=== PATIENT | female | born 2000 | race Caucasian/White ===

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

== ENCOUNTER 2022-12-18 13:14 | Emergency (ER) | payer BC, SELFPAY ==
--- NOTE | 2022-12-18 13:18 | ED.URI ---
HPI - URI/Sore Throat General Chief Complaint: Upper Respiratory Infection Stated Complaint: Sore Throat Time Seen by Provider: 12/18/22 13:17 Source: patient Mode of arrival: ambulatory Limitations: no limitations History of Present Illness HPI Narrative: Padmini is a 22-year-old female patient presenting to the clinic today with complaints sore throat since last night. She reports no known exposure to anyone with COVID, flu, or strep. Denies any fever, chills, body aches, runny nose, cough, headache, nausea, or vomiting Related Data Home Medications Medication Instructions Recorded Confirmed norelgestromin 150 mcg-e.estradiol 1 patch transdermal WEEKLY 09/28/20 01/07/21 35 mcg/24 hr weekly transderm patch (Xulane) Allergies Allergy/AdvReac Type Severity Reaction Status Date / Time No Known Allergies Allergy Verified 12/18/22 13:26 Review of Systems Review of Systems: Pertinent positives per HPI. Patient denies any fever, chills, rash, headache, visual changes, dizziness, cough, runny nose, shortness of breath, chest pain, palpitations, nausea, vomiting, diarrhea, constipation, abdominal pain, or any urinary issues. [facility] Past Medical History Medical History BMI 26.0-26.9,adult BMI 27.0-27.9,adult Family History Family History Father No problems noted. Mother Diabetes mellitus Thyroid activity decreased Hyperlipidemia Hypertension Sibling No problems noted. 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 There is no relevant family history pertinent to the patient complaint. Exam Narrative: General: Well-developed, well nourished, in no apparent distress Head: Normocephalic, atraumatic Eyes: Pupils equally round and reactive to light bilaterally, EOM intact, sclera and conjunctive clear, no discharge, lids normal Ears: TMs intact and clear, ear canals clear, no drainage, grossly hearing normal. Nose: Nares patent, no discharge, no inflammation, no sinus tenderness. Mouth: Oropharynx red without lesions or masses, good dentition, MMM. Neck: Supple, trachea midline, no enlargement of anterior or posterior cervical nodes, no thyroid masses or goiter palpable. Cardio: Regular rate and rhythm, s1 and s2 normal, no murmur appreciated. Resp: Clear to auscultation bilaterally anteriorly and posteriorly, no rhonchi, rales, wheezing or rubs Course Course Emergency Course: Portions of this record may have been created with voice recognition software. Level of Care: Express Care Visit Vital Signs Vital signs: Vital signs reviewed MDM - URI/Sore Throat MDM Narrative Medical decision making narrative: At the time of visit patient is resting comfortably on the exam table. Strep screen was obtained and was negative in the clinic today. We will send strep for culture. I suspect patient has pharyngitis. Supportive measures were discussed with the patient she voiced understanding discharge instructions and agrees to treatment plan. Return precautions were reviewed Differential Diagnosis Differential diagnosis: Likely upper respiratory infection, otitis media, sinusitis, viral infection, bronchitis, influenza
[2022-12-18 13:27] VITALS: BP 139/93; PULSE 93; RESP 16; TEMP 36.6; O2SAT 100
== END 2022-12-18 13:40 | disposition home or self-care (01) ==
PROVIDERS: Emergency Provider Nurse Practitioner Family; PCP Family Medicine
DX: J02.0 Streptococcal pharyngitis (principal)
CPT/HCPCS: 87880; 99213; G0463

== ENCOUNTER 2023-01-26 17:44 | Emergency (ER) | payer BC, SELFPAY ==
[2023-01-26 17:56] VITALS: BP 138/82; PULSE 128; RESP 16; TEMP 37.5; O2SAT 97
--- NOTE | 2023-01-26 17:58 | ED.URI ---
HPI - URI/Sore Throat General Chief Complaint: Upper Respiratory Infection Stated Complaint: Cough, Drainage Source: patient Mode of arrival: ambulatory Limitations: no limitations History of Present Illness HPI Narrative: 22-year-old female presented for complaint cough and chest congestion for about 4 days. Cough is productive of yellow mucous. Endorses chest hurts from coughing so much. She took a negative COVID test at home today. She denies shortness of breath, wheezing nausea, vomiting, fevers or chills. taking multiple whjg-cir-[id number] medicines for symptoms. Related Data Home Medications Medication Instructions Recorded Confirmed norgestimate-ethinyl estradiol 1 tablet PO DAILY 01/26/23 01/26/23 0.18 mg/0.215mg/0.25mg-35 mcg(28)tablet (Tri-Sprintec (28)) Allergies Allergy/AdvReac Type Severity Reaction Status Date / Time No Known Allergies Allergy Verified 01/26/23 17:53 Review of Systems Review of Systems: CONSTITUTIONAL: Denies body aches, fever, chills, or sweats. EYES: Denies visual changes, redness, or discharge. ENT: rhinorrhea, Denies sore throat or otalgia. CARDIOVASCULAR: Denies chest pain, palpitations, or edema. RESPIRATORY: Reports cough, denies sob, wheezing. GASTROINTESTINAL: Denies abdominal pain, nausea, vomiting, or diarrhea. SKIN: Denies rash, itching, or wounds. MUSCULOSKELETAL: Denies back pain, joint pain, or myalgia. NEUROLOGIC: Denies headache, numbness, tingling, or weakness. All systems reviewed & are unremarkable except as noted in HPI and below PMFSH Past Medical History Medical History BMI 26.0-26.9,adult BMI 27.0-27.9,adult BMI 33.0-33.9,adult Family History Family History Father No problems noted. Mother Diabetes mellitus Thyroid activity decreased Hyperlipidemia Hypertension Sibling No problems noted. 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 Please see nursing chart for further information. There is no relevant family history pertinent to the presenting complaint Exam Narrative: GENERAL: Well-appearing EYES: EOMI. No redness or drainage. Conjunctivae normal. ENT: Mucous membranes pink and moist. No rhinorrhea. TMs normal bilaterally. Throat normal. Uvula midline. CHEST: No respiratory distress. Lungs clear to all [place]. HEART: Regular rate and rhythm. No murmur appreciated. ABDOMEN: Soft, nontender, nondistended SKIN: Warm, dry, no rash. Capillary refill normal. Normal skin turgor. NEURO: Alert and oriented x3. Gait steady. PSYCH: Normal affect. Course Course Emergency Course: Patient is aware of diagnosis, understands and agrees to treatment plan. Anticipatory guidance given. Patient agrees to follow-up as directed and is aware of reasons to seek care at the emergency department. Portions of this record may have
== END 2023-01-26 18:08 | disposition home or self-care (01) ==
PROVIDERS: Emergency Provider Nurse Practitioner Family; PCP Family Medicine
DX: J40 Bronchitis, not specified as acute or chronic (principal)
CPT/HCPCS: 99213; G0463

== ENCOUNTER 2023-11-21 16:35 | Emergency (ER) | payer BC, SELFPAY ==
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
[2023-11-21 16:36] VITALS: BP 141/81; PULSE 90; RESP 18; TEMP 36.4; O2SAT 100
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
[2023-11-21 18:00] VITALS: BP 144/86; PULSE 90; RESP 14; TEMP 36.8; O2SAT 100
[2023-11-21] MEDS: ACETAMINOPHEN 500 MG TABLET 1000 MG PO (18:09)
== END 2023-11-21 18:43 | disposition home or self-care (01) ==
PROVIDERS: Emergency Provider Registered Nurse; PCP Family Medicine
DX: S06.0X0A Concussion without loss of consciousness, initial encounter (principal); S13.4XXA Sprain of ligaments of cervical spine, initial encounter; V49.40XA Driver injured in collision with unspecified motor vehicles in traffic accident, initial encounter
CPT/HCPCS: 70450; 72125; 99284; A9270

== ENCOUNTER 2024-02-22 12:05 | Outpatient (CLI) | payer BC, SELFPAY ==
--- NOTE | ~2024-02-22 | US_ITS ---
EXAMINATION: US right upper quadrant DATE: 02/22/2024 08:56 INDICATION: Right upper quadrant abdominal pain TECHNIQUE: Multiple grayscale and Doppler ultrasound images of the abdomen were obtained. COMPARISON: None FINDINGS: The pancreatic head and body are normal in appearance. The pancreatic tail is not visualized. Liver has normal contour, with a smooth surface. There is increased parenchymal echogenicity and coarsened echotexture consistent with diffuse hepatic steatosis. No liver lesion identified. No intrahepatic b iliary duct dilation suspected. Portal venous flow was seen in the hepatopetal, normal direction and has normal Doppler waveform. The gallbladder is normal in appearance. There is no cholelithiasis. Th e common bile duct measures 2 mm, which is normal. 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 Visualized portion of the right kidney demonstrates normal contour and echogenicit y with no hydronephrosis. IMPRESSION: 1. Diffuse hepatic steatosis. Reviewed, dictated and finalized at location B. [employer]
[2024-02-22 13:40] LABS: Hematocrit 43.2 % (37.0-47.0); Hemoglobin 14.9 g/dL (12.0-15.0); Mean Corpuscular HGB Conc 34.5 g/dl (32-36); Mean Corpuscular Hemoglobin 30.5 pg (26-34); Mean Corpuscular Volume 88.3 fl (80-100); Mean Platelet Volume 10.3 fl (7.4-10.4); Platelet Count Result 295 k/mm3 (150-375); Red Blood Count 4.89 M/mm3 (4.2-5.4); Red Cell Distribution Width 11.8 % (11.5-14.5); White Blood Count 9.8 K/mm3 (4.5-10.0)
[2024-02-22 13:55] LABS: Alanine Aminotransferase 114 U/L (6-35); Albumin Level 4.7 g/dL (3.5-5.1); Alkaline Phosphatase 102 U/L (38-126); Anion Gap 14 mmol/L (4-12); Aspartate Amino Transferase 62 U/L (14-36); Bilirubin,Total 0.5 mg/dL (0.2-1.3); Blood Urea Nitrogen 13 mg/dL (7-17); Calcium 9.6 mg/dL (8.4-10.2); Carbon Dioxide 23 mmol/L (22-30); Chloride 102 mmol/L (98-107); Estimated Glomerular Filt Rate > 60; Glucose 101 mg/dL (65-110); Lipase 196 U/L (23-300); Potassium 3.4 mmol/L (3.4-5.0); Sodium 139 mmol/L (137-145)
[2024-02-22 14:06] LABS: Iron 87 ug/dL (37-170)
[2024-02-22 14:16] LABS: Percent Iron Saturation 21 % (20-50)
[2024-02-22 14:37] LABS: Hepatitis B Surface Antigen Negative (Negative)
[2024-02-22 14:43] LABS: HAV RESULT Negative (Negative); Hepatitis B Core IgM Result Negative (Negative)
[2024-02-22 14:55] LABS: Hepatitis C Virus Antibody Negative (Negative)
[2024-02-22 21:56] LABS: Immunoglobulin G 1060 mg/dL (700-1600)
[2024-02-24 06:53] LABS: Alpha-1-Antitrypsin, QN 147 mg/dL (83-199); Ceruloplasmin 31 mg/dL (14-48)
[2024-02-25 19:24] LABS: Immunoglobulin A 276 mg/dL (47-310); TTG IGA AB <1.0 U/mL
--- OUTSIDE RECORDS SUMMARY | 2024-02-28 05:16 | XMS_ITS | Clinical Summary ---
Author Organization [facility] Address [address] [place] [address] Phone Care Team Providers Care Landscaping Supervisor Name Role Phone Art Parson MD Primary Care Provider [phone] Allergies No known active allergies Medications methylphenidate ER 18 mg tablet,extended release 24 hr Take 1 Tablet (18 mg) by mouth daily in the morning. Max Daily Amount: 18 mg 30 Tablet 08/10/2023 11:38 AM CDT 08/10/2023 Active Active Problems Problem Noted Date Diagnosed Date Mood disorder 05/12/2016 Encounters Date Type Department Care Team Description 02/26/2024 External Device Data [facility] ABSTRACTION Provider, Abstract from Last 3 Months Family History Medical History Relation Name Comments Healthy Father Depression Mother Hypertension Mother Relation Name Status Comments Father Alive Mother Alive Social History Tobacco Use Types Packs/Day Years Used Date Smoking Tobacco: Never Alcohol Use Standard Drinks/Week Comments No 0 (1 standard drink = 0.6 oz pur e alcohol) Comments No Sex and Gender Information Value Date Recorded Sex Assigned at Not on file Legal Sex Female 11:59 AM CDT Gender Identity Not on file Sexual Orientation Not on file Last Filed Vital Signs Vital Sign Reading Time Taken Comments Blood Pressure 120/70 05/12/2016 1:00 PM CDT Pulse - - Temperature 36.7 ??C (98.1 ??F) 05/12/2016 1 2:08 PM CDT Respiratory Rate 16 05/12/2016 1:00 PM CDT Oxygen Saturation 100% 05/12/2016 1:00 PM CDT Inhaled Oxygen Concentration - - Weight 60.7 kg (133 lb 13.1 oz) 017 12:08 PM CDT Height - - Body Mass Index - - Plan of Treatment Health Maintenance Due Date Last Done Comments CHLAMYDIA SCREENING (ANNUAL) 11-24 YEARS 2013 HPV VACCINES (1 - 3-dose series) 2017 DTAP/TDAP/TD VACCINES (1 - Tdap) 2021 HEPATITIS B VACCINES (1 of 3 - 19+ 3-dose series) 2021 CERVICAL CANCER SCREENING 08/07/2023 INFLUENZA VACCINE (#1) 2023 PNEUMOCOCCAL VACCINE 0-64 YEARS Aged Out No longer eligible based on patient's age to complete this topic Insurance [facility] BLUE PREFERRED RX [employer] Commercial [facility] BLUE PREFERRED Care Teams Landscaping Supervisor Relationship Specialty Start Date End Date Art Parson MD [address] [place] [id number] PCP - General Pediatrics 05/12/16
--- OUTSIDE RECORDS SUMMARY | 2024-02-28 05:16 | XMS_ITS | Patient Health Summary ---
Author Organization [facility] Address [address] [facility] [place] [address] Care Team Providers Care Jinriksha Driver Name Role Phone Unavailable Primary Care Provider Unavailabl e Note from [facility],non-owned Affiliates and Associated Physician Practices is amultiple site organization consisting of ambulatory clinics and hospital sitesin [place], [place], [place] and [place]. This disclosure is being madepursuant to the Care Everywhere program and may not contain all information available regarding this patient. Last updated 17.[facility] Allergies No known active allergies Medications * Be aware that medications may not be up to date on this document. Alwaysverify current medications with the patient. * peppermint oil liquid(Started 04/02/2018) Take 0.2 mL by mouth 3 times daily as needed 3 refills remaining Active Problems Problem Noted Date Diagnosed Date Functional abdominal pain syndrome 05/02/2018 GERD (gastroesophageal reflux disease) 8 Social History Tobacco Use Types Packs/Day Years Used Date Smoking Tobacco: Never Smokeless Tobacco: Never Sex and Gender Information Value Date Recorded Sex Assigned at Not on file Gender Identity Not on file Sexual Orientation Not on file Last Filed Vital Signs Vital Sign Reading Time Taken Comments Blood Pressure 100/52 01/14/2018 9:00 AM LOCATE TECHNICIAN Pulse 75 01/14/2018 9:15 AM LOCATE TECHNICIAN Temperature 36.6 ??C (97.8 ??F) 01/14/2018 8:36 AM CS T Respiratory Rate 16 01/14/2018 9:15 AM LOCATE TECHNICIAN Oxygen Saturation 100% 01/14/2018 9:15 AM LOCATE TECHNICIAN Inhaled Oxygen Concentration - - Weight 67 kg (147 lb 11.3 oz) 05/02/2018 3:15 PM CDT Height 161.8 cm (5' 3.7 ) 05/02/2018 3:15 PM CDT Body Mass Index 25.59 05/02/2018 3:15 PM CDT Procedures * EKG 15-LEAD(Performed 04/02/2018) Performed for High risk medications (not anticoagulants) long-term use * EGD(Performed 01/14/2018) Performed for Gastroesophageal reflux disease without esophagitis * HELICOBACTER PYLORI UREASE (STL)(Performed 01/14/2018) Performed for Abdominal pain, unspecified abdominal location * DISACCHARIDASE ASSESS PANEL(Performed 01/14/2018) Performed for Generalized abdominal pain * PATHOLOGY TISSUE EXAM (STL)(Performed 01/14/2018) Performed for Generalized abdominal pain * ESOPHAGOGASTRODUODENOSCOPY (EGD) BIOPSY(Performed 01/14/2018) * HCG URINE QUALITATIVE - POCT (IP) INTERFACED(Performed 01/14/2018) * HCG URINE QUAL POCT NOTIFICATION(Performed 01/14/2018) Performed for Preop testing * ERYTHROCYTE SEDIMENTATION RATE(Performed 12/10/2017) Performed for Gastroesophageal reflux disease without esophagitis * TISSUE TRANSGLUTAMINASE AB IGA(Performed 12/10/2017) Performed for Gastroesophageal reflux disease without esophagitis * IGA BLOOD(Performed 12/10/2017) Performed for Gastroesophageal reflux disease without esophagitis * C-REACTIVE PROTEIN(Performed 12/10/2017) Performed for Gastroesophageal reflux disease without esophagitis * CBC W AUTO DIFFERENTIAL(Performed 12/10/2017) Performed for Gastroesophageal reflux disease without esophagitis * COMPREHENSIVE METABOLIC PANEL(Performed 12/10/2017) Performed for Gastroesophageal reflux disease without esophagitis * ENDOSCOPY, COLON, DIAGNOSTIC(Performed 12/10/2017) Performed for Gastroesophageal reflux disease without esophagitis Results * EKG 15-LEAD (04/02/2018 1:23 PM LOCATE TECHNICIAN) Ventricular Rate 93 BPM [facility] MUSE Atrial Rate 93 BPM [facility]USE P-R Interval 114 ms [facility] MUSE QRS Duration ms 84 ms [facility] MUSE Q-T Interval ms 350 ms [facility] MUSE QTC Calculation (Bezet) 436 ms CG MUSE Calculated P [place] 67 degrees CG MUSE Calculated R [place] 71 degrees CG MUSE Calculated T [place] 63 degrees CG MUSE Interpretation EKG * Pediatric ECG Analysis * Normal sinus rhythm Normal ECG No previous ECGs available Confirmed by MD Espinoza Renuka ([id number]) on 04/08/2018 5:34:32 PM [facility] MUSE 04/02/2018 1:23 PM LOCATE TECHNICIAN 04/08/2018 5:34 PM LOCATE TECHNICIAN Teresita Ferguson MD ECG ORDERABLES [facility] * EGD (01/14/2018 10:26 AM LOCATE TECHNICIAN) Report Endoscopy POC _ Patient Name: Padmini Moura ? Date of : 2000 ? Admit Type: Outpatient Age: 17 ? Gender: Female Attending MD: Teresita Ferguson , ?Order #: [id number] _ Procedure: ? Upper GI endoscopy Indications: ? Generalized abdominal pain Providers: ? Teresita Ferguson Referring MD: ?Art Parson MD Medicines: ? General Anesthesia Complications: ? No immediate complications. _ Procedure: ? After obtaining informed consent, the endoscope was passed ? under direct vision. Throughout the procedure, the ? patient's blood pressure, pulse, and oxygen saturations ? were monitored continuously. The Endoscope was introduced ? through the mouth, and advanced to the second part of ? duodenum. The upper GI endoscopy was accomplished without ? difficulty. The patient tolerated the procedure well. Findings: ? No gross lesions were noted in the entire esophagus. Biopsies were taken ? with a cold forceps for histology. Estimated blood loss was minimal. ? Diffuse nodular mucosa was found in the gastric antrum. Biopsies were ? taken with a cold forceps for Helicobacter pylori testing using a rapid ? urease test. Biopsies were taken with a cold forceps for histology. ? Estimated blood loss was minimal. ? No gross lesions were noted in the second portion of the duodenum. ? Estimated blood loss was minimal. Impression: ?- No gross lesions in esophagus. Biopsied. ? - Nodular mucosa in the gastric antrum. Biopsied. R/o H. ? pylori ? - No gross lesions in the second portion of the duodenum. Recommendation: ?- Discharge patient to home (with parent). ? - Await pathology results. R/o H. pylori ? Procedure Code(s): ? --- Professional --- ? 49872, Esophagogastrodu odenoscopy, flexible, transoral; with biopsy, ? single or multiple ? --- Technical --- ? 20129, Esophagogastrodu odenoscopy, flexible, transoral; with biopsy, ? single or multiple Diagnosis Code(s): ? --- Professional --- ? K31.89, Other diseases of stomach and duodenum ? R10.84, Generalized abdominal pain ? --- Technical --- ? K31.89, Other diseases of stomach and duodenum ? R10.84, Generalized abdominal pain CPT copyright 2017 [employer]. All rights reserved. The codes documented in this report are preliminary and upon hull builder review may be revised to meet current compliance requirements. Dr. Teresita Ferguson Teresita Ferguson, 01/14/2018 8:35:10 AM This report has been signed electronically. Number of Addenda: 0 Note Initiated On: 01/10/2018 10:26 AM Procedure Date: ? 01/14/2018 10:26:00 AM ? This report has been signed electronically. [facility] 01/14/2018 10:2 6 AM LOCATE TECHNICIAN Teresita Ferguson MD GI PROCEDURE ORDERAB LES Performing Organization Address City/[facility]/ZIP Co de Phone Number [facility] [address] [place] [address] * HELICOBACTER PYLORI UREASE (STL) (01/14/2018 8:27 AM LOCATE TECHNICIAN) Helicobacter pylori Urease Initial Negative Negative 01/15/2018 8:43 AM LOCATE TECHNICIAN [facility] Helicobacter pylori Urease Final Negative Negative 01/15/2018 8:43 AM LOCATE TECHNICIAN [facility] Comment:This is an appended report. These results have been appended to a previously preliminary verified report. Microbiology GASTRIC ANTRAL BIOPSY SPECIMEN / Unknown Collection / Unknown 01/14/2018 8:27 AM LOCATE TECHNICIAN 01/14/2018 8:38 AM LOCATE TECHNICIAN Teresita Ferguson MD LAB - MICROBIOLOGY O RDERABLES Performing Organization Address [facility] Co de Phone Number [facility] [address] [place] [phone] * DISACCHARIDASE ASSESS PANEL (01/14/2018 8:26 AM LOCATE TECHNICIAN) Lactase 15.74 15.00 - 45.50 umol/min/ g prot 01/21/2018 12:10 PM LOCATE TECHNICIAN [facility]) Sucrase 27.19 25.00 - 69.90 umol/min/ g prot 01/21/2018 12:10 PM LOCATE TECHNICIAN [facility] Maltase 137.44 umol/min/ g prot 01/21/2018 12:10 PM LOCATE TECHNICIAN [facility] Comment:REFERENCE RANGE: 100 .00-224.40 Palatinase 7.60 5.00 - 26.30 umol/min/ g prot 01/21/2018 12:10 PM LOCATE TECHNICIAN [facility] Comment: The performance characteristics of these listed assays were validated by [employer] The [place] FDA has not approved or cleared these test The results of these assays can be used for clinical diagnosis without FDA approval. [employer] is a CLIA certified, CAP accredited laborato for performing high complexity assays such as these. Pathology/Cytolo gy SMALL BOWEL RESECTION SPECIMEN / Unknown Collection / Unknown 01/14/2018 8:26 AM LOCATE TECHNICIAN 01/14/2018 8:38 AM LOCATE TECHNICIAN Narrative [facility] ([facility]) - 01/21/2018 12:10 PM LOCATE TECHNICIAN Performed at: ??01 - [facility] [address] [place], [place] ??[id number] Para Professional: Shakir Sands PhD, Phone: ??[phone] Teresita Ferguson MD LAB - CHEMISTRY DEISY SMALL [facility] ([facility]) [address] [place] [address] * GROSS + MICRO EXAM (STL) (01/14/2018 8:25 AM LOCATE TECHNICIAN) Case Report Surgical Pathology Report ? Case: [id number] ? Authorizing Provider: ??Teresita Ferguson MD ?Collected: ? 01/14/2018 08:25 AM ? Ordering Location: ? [facility] ?Received: ?01/14/2018 09:26 AM ? Pathologist: ? Rufino Disla MD ? Specimens: ?? A) - Duodenal Biopsy ? B) - Stomach Biopsy ? C) - Esophageal Biopsy, distal ? D) - Esophageal Biopsy, mid ? 01/16/2018 6:22 PM [facility] Final Diagnosis A DUODENAL BIOPSY: -NO PATHOLOGIC DIAGNOSIS B STOMACH BIOPSY: -NO PATHOLOGIC DIAGNOSIS. -SEE COMMENT C ESOPHAGEAL BIOPSY, DISTAL: -NO PATHOLOGIC DIAGNOSIS D ESOPHAGEAL BIOPSY, MID: -NO PATHOLOGIC DIAGNOSIS COMMENT: H. PYLORI IMMUNOSTAIN STAIN IS NEGATIVE . UREASE TEST IS NEGATIVE. THE STOMACH BIOPSY SHOWS A LARGE LYMPHOID FOLLICLE WITH A GERMINAL CENTER, A FINDING USUALLY ASSOCIATED WITH CHRONIC ACTIVE GASTRITIS. THE BIOPSY DOES NOT SHOW GASTRITIS 01/16/2018 6:22 PM [facility] Clinical History The patient is a 17-year-old girl with abdominal pain who underwent upper endoscopy. The endoscopic finding was gastric nodularity. Rule out H. pylori. 01/16/2018 6:22 PM [facility] Gross Description The specimens are received fixed in formalin in four containers for gross and microscopic examination. All containers are labeled with the patient's name, Padmini Moura. Specimen A, duodenal biopsy, consists of two 3 mm soft, yellow-vegas tissue fragments submitted in toto as A1. Specimen B, stomach biopsy, consists of two 4 mm soft, yellow-vegas tissue fragments submitted in toto as B1. Specimen C, distal esophageal biopsy, consists of two soft, paez-white tissue fragments, 2 mm and 3 mm in greatest dimension. The specimen is submitted in toto as C1. Specimen D, mid esophageal biopsy, consists of two 2 mm soft, paez-pink tissue fragments submitted in toto as D1. (CT/sm) 01/16/2018 6:22 PM [facility] Microscopic Description 12 sections H and E. The stomach shows a lymphoid follicle with a germinal center No gastritis and no activity are present in the tissue section. The rest of the biopsies are normal. 01/16/2018 6:22 PM [facility] Disclaimer The performance characteristics of all immunohistochemical and indirect immunofluorescence stains (if any) cited in this report were determined by the Histopathology Laboratory of [facility]. Some of these tests were developed by our own laboratory and have not been cleared or approved by the US Food and Drug Administration (FDA). The FDA does not require this test to go through premarket FDA review. These tests are used for clinical purposes. They should not be regarded as investigational or for research. This laboratory is certified under the Clinical Laboratory Improvement Amendments (CLIA) as qualified to perform high complexity clinical laboratory testing. This case has been personally reviewed and interpreted by the attending (teaching) pathologist. 01/16/2018 6:22 PM [facility] Embedded Images 01/16/2018 6:22 PM [facility] Pathology/Cytology ESOPHAGEAL BIOPSY SPECIMEN / Unknown 01/14/2018 8:25 AM LOCATE TECHNICIAN 01/14/2018 9:26 AM LOCATE TECHNICIAN Miscellaneous samples (specimen) BIOPSY OF STOMACH / Unknown 01/14/2018 8:25 AM LOCATE TECHNICIAN 01/14/2018 9:26 AM LOCATE TECHNICIAN Miscellaneous samples (specimen) ESOPHAGEAL BIOPSY SPECIMEN / Unknown 01/14/2018 8:25 AM LOCATE TECHNICIAN 01/14/2018 9:26 AM LOCATE TECHNICIAN Miscellaneous samples (specimen) ESOPHAGEAL BIOPSY SPECIMEN / Unknown 01/14/2018 8:25 AM LOCATE TECHNICIAN 01/14/2018 9:26 AM LOCATE TECHNICIAN Teresita Ferguson MD LAB - PATHOLOGY/CYTO LOGY ORDERABLES [facility] [place] [address] * HCG URINE QUALITATIVE - POCT (IP) INTERFACED (01/14/2018 7:11 AM LOCATE TECHNICIAN) HCG Qual Urine Negative Negative 01/14/2018 7:15 AM LOCATE TECHNICIAN [facility] Urine URINE / Unknown 01/14/2018 7 :11 AM LOCATE TECHNICIAN 01/14/2018 7:15 AM LOCATE TECHNICIAN Teresita Ferguson MD LAB - POINT OF CARE ORDERABLES Performing Organization Address [facility] de Phone Number [facility] [address] [place] [address] * HCG URINE QUAL POCT NOTIFICATION (01/14/2018 7:00 AM LOCATE TECHNICIAN) Pathologist [facility] Comment Notification Label Only - See Separate Report 01/14/2018 8:30 AM LOCATE TECHNICIAN [facility] Urine URINE / Unknown 01/14/2018 7 :00 AM LOCATE TECHNICIAN 01/14/2018 7:00 AM LOCATE TECHNICIAN Teresita Ferguson MD LAB - URINALYSIS ORD ERABLES Performing Organization Address [facility] de Phone Number [facility] [address] [place] [address] * TISSUE TRANSGLUTAMINASE AB IGA (12/10/2017 10:09 AM LOCATE TECHNICIAN) TTG Antibody IgA <2 0 - 3 U/mL [facility] INSURANCE BILL Comment: ? Negative ?0 - ??3 ? Weak Positive ?? 4 - 10 ? Positive ? >10 ?. ?Tissue Transglutaminase (tTG) has been identified ?as the endomysial antigen. ??Studies have demonstr- ?ated that endomysial IgA antibodies have over 99% ?specificity for gluten sensitive enteropathy. FASTING Blood BLOOD SPECIMEN / Unknown 12/10/2017 10:09 AM LOCATE TECHNICIAN 12/10/2017 Narrative Resulting Agency Comment [facility] [address] ??[place] [phone] Teresita Ferguson MD LAB - SEROLOGY ORDER POLY Performing Organization Address City/[facility] Co de Phone Number [facility] INSURANCE BILL [address] [place] [address] * C-REACTIVE PROTEIN (12/10/2017 10:09 AM LOCATE TECHNICIAN) C-Reactive Protein <0.3 0.0 - 4.9 mg/L [facility] INSURANCE BILL Comment:FASTING Blood BLOOD SPECIMEN / Unknown 12/10/2017 10:09 AM LOCATE TECHNICIAN 12/10/2017 Narrative Resulting Agency [facility] [place] [address] ??[place] [phone] Teresita Ferguson MD LAB - CHEMISTRY ORDE RABLES Performing Organization Address [facility]/ZIP Co de Phone Number [facility] INSURANCE BILL [address] [place] [address] * SED RATE WESTERGREN AUTO (12/10/2017 10:09 AM LOCATE TECHNICIAN) Erythrocyte Sedimentation Rate Westergren 2 0 - 32 mm/hr [facility] INSURANCE BILL Comment:FASTING Blood BLOOD SPECIMEN / Unknown 12/10/2017 10:09 AM LOCATE TECHNICIAN 12/10/2017 Narrative Resulting Agency Comment [facility] [address] ??[facility] [phone] Teresita Ferguson MD LAB - HEMATOLOGY ORD ERABLES [facility] INSURANCE BILL [address] [place] [address] * CBC W AUTO DIFFERENTIAL (12/10/2017 10:09 AM LOCATE TECHNICIAN) WBC 7.7 3.4 - 10.8 x10E3/uL [facility] INSURANCE BILL RBC 5.05 3.77 - 5.28 x10E6/uL [facility] INSURANCE BILL Hemoglobin 15.3 11.1 - 15.9 g/dL [facility] INSURANCE BILL Hematocrit 45.1 34.0 - 46.6 % [facility] INSURANCE BILL MCV 89 79 - 97 fL [facility] INSURANCE BILL MCH 30.3 26.6 - 33.0 pg [facility] INSURANCE BILL MCHC 33.9 31.5 - 35.7 g/dL [facility] INSURANCE BILL RDW 12.5 12.3 - 15.4 % [facility] INSURANCE BILL Platelet Count 234 150 - 379 x10E3/uL [facility] INSURANCE BILL Granulocytes % 62 Not Estab. % [facility] INSURANCE BILL Lymphocytes % 30 Not Estab. % [facility] INSURANCE BILL Monocytes % 7 Not Estab. % [facility] INSURANCE BILL Eosinophils % 1 Not Estab. % [facility] INSURANCE BILL Basophils % 0 Not Estab. % [facility] INSURANCE BILL Immature Cells NOT NEEDED [facility] INSURANCE BILL Comment:Ancillary determined the test is not needed Granulocytes Absolute 4.8 1.4 - 7.0 x10E3/uL [facility] INSURANCE BILL Lymphocytes Absolute 2.3 0.7 - 3.1 x10E3/uL [facility] INSURANCE BILL Monocytes Absolute 0.5 0.1 - 0.9 x10E3/uL [facility] INSURANCE BILL Eosinophils Absolute 0.0 0.0 - 0.4 x10E3/uL [facility] INSURANCE BILL Basophils Absolute 0.0 0.0 - 0.3 x10E3/uL [facility] INSURANCE BILL Immature Granulocytes 0 Not Estab. % [facility] INSURANCE BILL Immature Granulocytes Absolute 0.0 0.0 - 0.1 x10E3/uL [facility] INSURANCE BILL nRBC NOT NEEDED [facility] INSURANCE BILL Comment:Ancillary determined the test is not needed Comment Hematology NOT NEEDED [facility] INSURANCE BILL Comment: FASTING Ancillary determined the test is not needed Blood BLOOD SPECIMEN / Unknown 12/10/2017 10:09 AM LOCATE TECHNICIAN 12/10/2017 Narrative Resulting Agency Comment [facility] [address] [facility] ??[facility] [phone] Teresita Ferguson MD LAB - HEMATOLOGY ORD ERABLES [facility] INSURANCE BILL [address] [place] [address] * COMPREHENSIVE METABOLIC PANEL (12/10/2017 10:09 AM LOCATE TECHNICIAN) Glucose 78 65 - 99 mg/dL [facility] INSURANCE BILL BUN 12 5 - 18 mg/dL [facility] INSURANCE BILL Creatinine 0.66 0.57 - 1.00 mg/dL [facility] INSURANCE BILL BUN/Creatinine Ratio 18 10 - 22 [facility] INSURANCE BILL Sodium 142 134 - 144 mmol/L [facility] INSURANCE BILL Potassium 4.3 3.5 - 5.2 mmol/L [facility] INSURANCE BILL Chloride 103 96 - 106 mmol/L [facility] INSURANCE BILL CO2 23 20 - 29 mmol/L [facility] INSURANCE BILL Calcium 10.1 8.9 - 10.4 mg/dL [facility] INSURANCE BILL Protein Total 7.8 6.0 - 8.5 g/dL [facility] INSURANCE BILL Albumin 5.0 3.5 - 5.5 g/dL [facility] INSURANCE BILL Globulin Total 2.8 1.5 - 4.5 g/dL [facility] INSURANCE BILL Albumin/Globulin Ratio 1.8 1.2 - 2.2 [facility] INSURANCE BILL Bilirubin Total 0.3 0.0 - 1.2 mg/dL [facility] INSURANCE BILL Alkaline Phosphatase 98 54 - 121 IU/L [facility] INSURANCE BILL AST 18 0 - 40 IU/L [facility] INSURANCE BILL ALT 14 0 - 24 IU/L [facility] INSURANCE BILL Comment:FASTING Blood BLOOD SPECIMEN / Unknown 12/10/2017 10:09 AM LOCATE TECHNICIAN 12/10/2017 Narrative Resulting Agency Comment [facility] [address] ??[facility] [phone] Teresita Ferguson MD LAB - CHEMISTRY DEISY SMALL [facility] INSURANCE BILL [address] [place] [address] * IGA BLOOD (12/10/2017 10:09 AM LOCATE TECHNICIAN) IgA Quantitative 173 51 - 220 mg/dL [facility] INSURANCE BILL Comment:FASTING Blood BLOOD SPECIMEN / Unknown 12/10/2017 10:09 AM LOCATE TECHNICIAN 12/10/2017 Narrative Resulting Agency Comment [facility] [place] [address] ??[place] [phone] Teresita Ferguson MD LAB - CHEMISTRY DEISY SMALL [facility] INSURANCE BILL [address] [place] [address]
--- OUTSIDE RECORDS SUMMARY | 2024-02-28 05:16 | XMS_ITS | Referral Summary ---
Author Organization [facility] Address [address] [facility] [place] [address] Care Team Providers Care Dispatcher Ship Pilot Name Role Phone Unavailable Primary Care Provider Unavailabl e Source Comments [facility],non-owned Affiliates and Associated Physician Practices is amultiple site organization consisting of ambulatory clinics and hospital sitesin [place], [place], [place] and [place]. This disclosure is being madepursuant to the Care Everywhere program and may not contain all information available regarding this patient. Last updated 17.[facility] Allergies No known active allergies Medications * Be aware that medications may not be up to date on this document. Alwaysverify current medications with the patient. Medication Sig Dispensed Refills Start Date End Date Status peppermint oil liquid Take 0.2 mL by mouth 3 times daily as needed 25 mL 3 04/02/2018 Active Active Problems Problem Noted Date Diagnosed [...] Comments Blood Pressure 100/52 01/14/2018 9:00 AM BLENDING TANK TENDER HELPER Pulse 75 01/14/2018 9:15 AM BLENDING TANK TENDER HELPER Temperature 36.6 ??C (97.8 ??F) 01/14/2018 8:36 AM CS T Respiratory Rate 16 01/14/2018 9:15 AM BLENDING TANK TENDER HELPER Oxygen Saturation 100% 01/14/2018 9:15 AM BLENDING TANK TENDER HELPER Inhaled Oxygen Concentration - - Weight 67 kg (147 lb 11.3 oz) 05/02/2018 3:15 PM CDT Height 161.8 cm (5' 3.7 ) 05/02/2018 3:15 PM CDT Body Mass Index 25.59 05/02/2018 3:15 PM CDT Functional Status Functional Status Response Date of Assess ment Is person deaf or have serious hearing difficult y? No 01/14/2018 Is person blind or have serious difficulty seein g? No 01/14/2018 Does person have serious dif ficulty walking/climbing stairs? No 01/14/2018 Does person have difficulty dressing/bathing? No 01/14/2018 Does person have difficulty doing errands alone? No 01/14/2018 Cognitive Status Response Date of Assessm ent Does person have difficulty concentrating/remembering/making decisions? No 01/14/2018 Plan of Treatment Not on file
--- OUTSIDE RECORDS SUMMARY | 2024-02-28 05:16 | XMS_ITS | Clinical Summary ---
Author Organization [address] Address [address] [place] [id number] Care Team Providers Care Music Education Adjunct Professor Name Role Phone No, Physician Primary Care Provider [phone] Allergies No known active allergies Medications Xulane 150-35 mcg/24 hr 11/13/2020 Active Active Problems Problem Noted Date Diagnosed Date Functional abdominal pain syndrome 05/02/2018 GERD (gastroesophageal reflux disease) 8 Mood disorder 05/12/2016 Immunizations Name Administration Dates Next Due DTaP 08/20/2007, 4,02/10/2003,12/11,2002 Hep A, Ped Unspecified 08/20/2008,08/20/2007 Hep B / HiB 08/13/2003,2002 Hep B, Adolescent or Pediatric 2002,2002,2002 HiB 2002,2002 IPV 08/20/2007, 4,2002,10/03 Influenza LAIV (Nasal) 12/26/2011,12/09/2010 Influenza, Live, Intranasal, Quadrivalent 12/16/2012 Influenza, Quadrivalent, Spl it, Intramuscular 11/20/2017 Influenza, Quadrivalent, Spl it, Preservative Free, Intramuscular 11/13/2019,11/20/2018,11/29/2016,12/16,11/14/2013 Influenza, Split 12/08/2008,11/26/2007 MMR 08/20/2007,08/13/2003 Meningococcal B, OMV (Bexsero) 12/31/2018,2018 Meningococcal Conjugate (Menveo) 11/20/2018 Meningococcal MCV4P (Menactra) 08/26/2013 Pneumococcal Conjugate 7-Valent 02/24/19 05,02/10/2003,2002,10/03 Tdap 07/17/2013 Varicella 08/20/2007,11/11/2003 Social History Tobacco Use Types Packs/Day Years Used Date Smoking Tobacco: Never Smokeless Tobacco: Never Comments Unknown Sex and Gender Information Value Date Recorded Sex Assigned at Not on file Legal Sex Female 12:33 PM CDT Gender Identity Not on file Sexual Orientation Not on file Obstetrics History Last Filed Vital Signs Vital Sign Reading Time Taken Comments Blood Pressure 110/68 12/25/2020 11:29 AM PLUM PACKER Pulse 85 12/25/2020 11:29 AM PLUM PACKER Temperature 37 ??C (98.6 ??F) 12/25/2020 11:29 AM PLUM PACKER Respiratory Rate 18 12/25/2020 11:29 AM PLUM PACKER Oxygen Saturation 98% 12/25/2020 11:29 AM PLUM PACKER Inhaled Oxygen Concentration - - Weight 69.5 kg (153 lb 3.2 oz) 12/25/2020 11:29 AM PLUM PACKER Height 160 cm (5' 3 ) 12/25/2020 11:29 AM PLUM PACKER Body Mass Index 27.14 12/25/2020 11:29 AM PLUM PACKER Plan of Treatment Not on file Insurance [employer] OOS Care Teams Music Education Adjunct Professor Relationship Specialty Start Date End Date No, Physician PCP - General 10/04/20
--- OUTSIDE RECORDS SUMMARY | 2024-02-28 05:16 | XMS_ITS | Clinical Summary ---
Author Organization [facility] Address [address] [place] [address] Care Team Providers Care Associate Editor Name Role Phone Unavailable Primary Care Provider Unavailabl e Source Comments [facility],non-owned Affiliates and Associated Physician Practices is amultiple site organization consisting of ambulatory clinics and hospital sitesin [place], [place], [place] and [place]. This disclosure is being madepursuant to the Care Everywhere program and may not contain all information available regarding this patient. Last updated 17.[facility] [employer] Allergies No known active allergies Medications * [...] syndrome 05/02/2018 GERD (gastroesophageal reflux disease) 8 Family History Medical History Relation Name Comments Anxiety Disorder Brother Depression Mother Relation Name Status Comments Brother Mother Social History Tobacco Use Types Packs/Day Years Used Date Smoking Tobacco: Never Smokeless Tobacco: Never Sex and Gender Information Value Date Recorded Sex Assigned at Not on file Gender Identity Not on file Sexual Orientation Not on file Last Filed Vital Signs Vital Sign Reading Time Taken Comments Blood Pressure 100/52 01/14/2018 9:00 AM PEPPER PICKER Pulse 75 01/14/2018 9:15 AM PEPPER PICKER Temperature 36.6 ??C (97.8 ??F) 01/14/2018 8:36 AM CS T Respiratory Rate 16 01/14/2018 9:15 AM PEPPER PICKER Oxygen Saturation 100% 01/14/2018 9:15 AM PEPPER PICKER Inhaled Oxygen Concentration - - Weight 67 kg (147 lb 11.3 oz) 05/02/2018 3:15 PM CDT Height 161.8 cm (5' 3.7 ) 05/02/2018 3:15 PM CDT Body Mass Index 25.59 05/02/2018 3:15 PM CDT Plan of Treatment Health Maintenance Due Date Last Done Comments PAP SMEAR 2002 HIV SCREENING 2017 HPV VACCINE (1 - 3-dose series) 2017 CHLAMYDIA/GONORRHEA SCREENING 2018 MENINGOCOCCAL (Group B) VACC INE (1 of 2 - Standard) 2018 HEPATITIS C SCREENING 08/01/2020 DTAP/TDAP/TD VACCINES (1 - Tdap) 2021 HEPATITIS B VACCINE (1 of 3 - 19+ 3-dose series) 2021 COVID-19 VACCINE (1 - 2023-2 5 season) 2023 INFLUENZA VACCINE (#1) 2023 DEPRESSION SCREENING 02/06/2024 ZOSTER VACCINE (1 of 2) 2052 HIB VACCINE Aged Out No longer eligi ble based on patient's age to complete this topic MENINGOCOCCAL VACCINE Aged Out No benja liz eligible based on patient's age to complete this topic PNEUMOCOCCAL VACCINE Aged Out No long er eligible based on patient's age to complete this topic
--- OUTSIDE RECORDS SUMMARY | 2024-02-28 05:16 | XMS_ITS | Referral Summary ---
Author Organization [facility] [address] [place] [address] [place] [phone] Care Team Providers Care Glassware Maker Demonstrator Name Role Phone No, Physician Primary Care Provider [phone] Allergies No known active allergies Medications Xulane [...] Comments Blood Pressure 110/68 12/25/2020 11:29 AM FMD TEACHER Pulse 85 12/25/2020 11:29 AM FMD TEACHER Temperature 37 ??C (98.6 ??F) 12/25/2020 11:29 AM FMD TEACHER Respiratory Rate 18 12/25/2020 11:29 AM FMD TEACHER Oxygen Saturation 98% 12/25/2020 11:29 AM FMD TEACHER Inhaled Oxygen Concentration - - Weight 69.5 kg (153 lb 3.2 oz) 12/25/2020 11:29 AM FMD TEACHER Height 160 cm (5' 3 ) 12/25/2020 11:29 AM FMD TEACHER Body Mass Index 27.14 12/25/2020 11:29 AM FMD TEACHER Plan of Treatment Not on file Insurance [employer] OOS Care Teams Glassware Maker Demonstrator Relationship Specialty Start Date End Date No, Physician PCP - General 10/04/20
== END 2024-02-22 12:06 | disposition home or self-care (01) ==
PROVIDERS: PCP Family Medicine; Referring Provider Nurse Practitioner; Visit Provider Physician Assistant Medical
DX: R10.11 Right upper quadrant pain (principal); K76.0 Fatty (change of) liver, not elsewhere classified; R74.8 Abnormal levels of other serum enzymes; R10.10 Upper abdominal pain, unspecified; R19.7 Diarrhea, unspecified; K90.49 Malabsorption due to intolerance, not elsewhere classified; R19.5 Other fecal abnormalities; K21.9 Gastro-esophageal reflux disease without esophagitis; R11.0 Nausea; K74.60 Unspecified cirrhosis of liver
CPT/HCPCS: 36415; 76705; 80053; 80074; 81596; 82103; 82390; 82784; 83520; 83540; 83550; 83690; 84443; 85027; 86038; 86364; 86376

== ENCOUNTER 2025-01-11 16:14 | Emergency (ER) | payer BC, SELFPAY ==
--- NOTE | ~2025-01-11 | XR_ITS ---
EXAMINATION: XR toe 1st RT min 2V, 01/11/2025 16:43 FIRE INVESTIGATION LIEUTENANT HISTORY: hit toe on desk 2 days ago COMPARISON: No comparisons available. Findings: No acute fracture or malalignment. No significant degenerative changes. Soft tissues unremarkable. Impression: No acute fracture or malalignment. Reviewed, dictated and finalized at location P. INVESTIGATION LIEUTENANT Impression: No acute fracture or malalignment.
[2025-01-11 16:25] VITALS: BP 125/75; PULSE 93; RESP 16; TEMP 36.7; O2SAT 100
--- NOTE | 2025-01-11 16:25 | ED_ITS ---
HPI - General Adult General Chief complaint: Extremity Problem,Nontraumatic Stated complaint: Infected Toe Time Seen by Provider: 01/11/25 16:25 Source: patient Mode of arrival: ambulatory Limitations: no limitations History of Present Illness HPI narrative: 24-year-old female patient presents to [facility] with complaints of pain to the right great toe. Patient states she has been having issues with an infected toenail since October that she has been putting print on it and keeping it covered. Patient states 2 days ago she hit her great toe and has had increased pain since then. Patient denies any discharge coming from the toe. Related Data Home Medications ?Medication ?Instructions ?Recorded ?Confirmed ?Last Taken ?Type drospirenone 3 mg-ethinyl tablet 01/11/25 Unknown His tory estradiol 0.02 mg tablet (Loryna (28)) Allergies Allergy/AdvReac Type Severity Reaction Status Date / Time latex AdvReac Rash Verified 01/11/25 16:26 Review of Systems Review of Systems: CONSTITUTIONAL: Denies fever, chills, or sweats. EYES: Denies visual changes, redness, or discharge. ENT: Denies rhinorrhea, congestion, sore throat, or otalgia. CARDIOVASCULAR: Denies chest pain, palpitations, or edema. RESPIRATORY: Denies cough or dyspnea. GASTROINTESTINAL: Denies abdominal pain, nausea, vomiting, or diarrhea. GENITOURINARY: Denies dysuria or hematuria. SKIN: Denies rash or itching. Positive tenderness and pain to right great toe MUSCULOSKELETAL: Denies back pain, joint pain, or myalgia. NEUROLOGIC: Denies headache, numbness, or weakness. PSYCHIATRIC: Denies anxiety or depression. [facility] Past Medical History Medical History Sinusitis Chest pain Family History Family History Father No problems noted. Mother Diabetes mellitus Thyroid activity decreased Hyperlipidemia Hypertension Sibling No problems noted. 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 There is no relevant family history pertinent to the presenting complaint. Exam Narrative: GENERAL: Well-appearing, well-nourished, and in no acute distress. HEAD: Normocephalic, atraumatic. EYES: PERRLA and EOMI. ENT: Nares clear, no rhinorrhea or epistaxis. Mucous membranes moist. NECK: Supple. No lymphadenopathy CHEST: Clear to auscultation. No respiratory distress. HEART: Regular rate and rhythm. No murmur heard. Normal peripheral pulses. ABDOMEN: Soft, nontender, nondistended, normal active bowel sounds. EXTREMITIES: Normal range of motion. No edema. SKIN: Warm, dry, no rash. patient has some erythema noted to the lateral portion of the right great toe no active discharge at this time the toenail is jagged. It is tender to the touch. NEURO: No focal deficits. Alert and oriented x3. Course Course Level of Care: Express Care Visit Vital Signs Vital signs: Vital Signs Temperature 36.7 C 01/11/25 16:25 Pulse Rate 93 01/11/25 16:25 Respiratory Rate 16 01/11/25 16:25 Blood Pressure 125/75 01/11/25 16:25 Pulse Oximetry 100 01/11/25 16:25 Temperature 36.7 C 01/11/25 16:25 Pulse Rate 93 01/11/25 16:25 Respiratory Rate 16 01/11/25 16:25 Blood Pressure 125/75 01/11/25 16:25 Pulse Oximetry 100 01/11/25 16:25 Vital signs reviewed. Procedures Other Procedure Procedure 1: Other Procedure: small scissors were used to cut away and ingrown toenail on the right great toe. Forceps were used to pull the ingrown toenail out. The patient had immediate relief. Antibiotic ointment was applied and covered with bandage. MDM MDM Narrative Medical decision making narrative: Plan care patient is to obtain x-ray of the toe to rule out a fracture since she did have a trauma to the toe about 2 days ago. If that is negative most likely will try and soak the toe and see if we can debride away some of the toenail. Differential Diagnosis Differential Diagnosis: Differential diagnosis: Foot fracture, crush injury, compartment syndrome, co ntusion, sprain, tendinitis,lisfranc sprain or fracture, avulsion fracture, grown toenail, diabetic ulcer. Abscess, cellulitis, hidradenitis, laceration, puncture wound. Imaging Data Radiologist's impression: ITS Impressions Toe X-Ray 01/11/25 16:59 Impression: No acute fracture or malalignment. [address] [place] [address] XRay Report Signed Patient: Padmini Moura : 2000 MR#: [id number] Age: 24 Acct:[id number] Loc: [facility] ADM Date: 01/11/[address]: Ordering Physician: Joanna Waite RN TELEHEALTH Date of Service: 01/11/25 Procedure(s): XR toe 1st RT min 2V Accession Number(s): [id number] cc: JAVA SECURITY ENGINEER PHYSICIAN; Joanna Waite RN TELEHEALTH~ EXAMINATION: XR toe 1st RT min 2V, 01/11/2025 16:43 STRATEGIC PARTNERSHIP MANAGER HISTORY: hit toe on desk 2 days ago COMPARISON: No comparisons available. Findings: No acute fracture or malalignment. No significant degenerative changes. Soft tissues unremarkable. Impression: No acute fracture or malalignment. Reviewed, dictated and finalized at location P. TEGIC PARTNERSHIP MANAGER Critical Care Time Critical Care Time Critical Care Time: No Discharge Plan Discharge Clinical Impression: Ingrowing toenail of right foot Patient Disposition: Home Condition: Stable Instructions: Antibiotic Form, Ingrown Nail (ED) Additional Instructions: Soak the affected toe in warm water with Epsom salts at least 10-15 minutes 3 times a day. After soaking cotton dry the affected extremity and apply the ointment that was prescribed U today. May cover with Band-Aid. Soak and lift your nail: Soak your ingrown nail in water for 20 minutes, 2 times each day. Then gently lift the edge of the ingrown nail away from the skin. Wedge a small piece of cotton or gauze under the corner of the nail. This may help keep the nail from growing into the skin. Wear shoes and socks that fit well: Make sure they are not too tight. You may need to wear a shoe with the toe cut out, such as sandals, until your ingrown toenail heals. Do not wear shoes that have pointed toes or heels that are more than 2 inches high. Do not wear tight hosiery or socks. Wear socks, such as cotton-acrylic blends, that pull moisture away from your feet. Carefully trim your nails: Cut your nails straight across. Do not cut them too short. Lightly file the nail corners if you have sharp edges. Do not round your nails. Do not rip or tear off the tips of your nails. This may cause your nail edge to grow into the skin. Use clippers, not nail scissors. Keep your nails clean and dry: Wash your hands and feet with soap and water. Pat dry with a clean towel. Dry in between each toe. Do not put lotion between your toes. Inspect your nails daily: Look for signs of an ingrown nail. Manage problems early so the nail does not become infected. Patient Language: Malawian Prescriptions: New mupirocin [Centany] 2 % ointment 1 applic topical BID Qty: 22 0RF No Action drospirenone-ethinyl estradiol [Loryna (28)] 3-0.02 mg tablet methylphenidate HCl [Concerta] 27 mg tablet extended release 24hr 27 mg PO QAM Qty: 30 0RF Follow-up/Referrals: PHYSICIAN,JAVA SECURITY ENGINEER [Primary Care Provider, Internal Medicine] Time of Disposition: 17:27
== END 2025-01-11 17:29 | disposition home or self-care (01) ==
PROVIDERS: Emergency Provider Nurse Practitioner Family
DX: L60.0 Ingrowing nail (principal)
CPT/HCPCS: 11730; 73660; 99213; G0463